=== PATIENT | female | born 1950 | race Caucasian/White ===

== ENCOUNTER 2024-10-23 12:58 | Outpatient (CLI) | payer MEDICARE | END 2024-10-23 12:59 | disposition home or self-care (01) | LOC: CSHMAMMO 12:58 | PROVIDERS: ATTEND Family Medicine | DX: Z12.31 Encounter for screening mammogram for malignant neoplasm of breast (principal); Z78.0 Asymptomatic menopausal state | CPT/HCPCS: 77063; 77067; 77080 ==